=== PATIENT | male | born 1950 ===

== ENCOUNTER 2020-06-25 21:08 | Emergency (ER) | payer BC, SELFPAY ==
[2020-06-25 22:00] LABS: HEMATOCRIT 37.2 % (42.0-52.0); HEMOGLOBIN 12.3 g/dl (13.5-17.5); MEAN CORPUSCULAR HEMOGLOBIN 30.9 pg (27.0-33.0); MEAN CORPUSCULAR HGB CONC 33.1 g/dl (32.0-36.5); MEAN CORPUSCULAR VOLUME 93.5 fl (80.0-96.0); PLATELET COUNT, AUTOMATED 186 10^3/uL (150-450); RED BLOOD COUNT 3.98 10^6/uL (4.30-6.10); WHITE BLOOD COUNT 8.2 10^3/uL (4.0-10.0)
[2020-06-25 22:11] LABS: INR 1.04; PROTHROMBIN TIME 13.8 SECONDS (12.5-14.3)
[2020-06-25 22:27] LABS: BLOOD UREA NITROGEN 19 MG/DL (7-18); CALCIUM LEVEL 9.1 MG/DL (8.8-10.2); CARBON DIOXIDE LEVEL 25 MEQ/L (21-32); CHLORIDE LEVEL 104 MEQ/L (98-107); CREATININE FOR GFR 1.22 MG/DL (0.70-1.30); ETHYL ALCOHOL (ETHANOL) 0.239 % (0.000-0.010); GLOMERULAR FILTRATION RATE > 60.0 (>42); GLUCOSE, FASTING 113 MG/DL (70-100); POTASSIUM SERUM 3.8 MEQ/L (3.5-5.1); SODIUM LEVEL 137 MEQ/L (136-145)
--- NOTE | 2020-06-25 22:47 | REPVR ---
PROCEDURE INFORMATION: Exam: CT Head Without Contrast Exam date and time: 06/25/2020 10:25 PM Age: 69 years old Clinical indication: Injury or trauma; Fall; Blunt trauma (contusions or hematomas); Additional info: ? Loc TECHNIQUE: Imaging protocol: Computed tomography of the head without contrast. Radiation optimization: All CT scans at this facility use at least one of these dose optimization techniques: automated exposure control; mA and/or kV adjustment per patient size (includes targeted exams where dose is matched to clinical indication); or iterative reconstruction. COMPARISON: No relevant prior studies available. FINDINGS: Brain: There is no evidence of intracranial hemorrhage. No abnormal extra-axial fluid collections are identified. No mass effect or midline shift is seen. Blakely-white differentiation is preserved throughout. Cerebral ventricles: No ventriculomegaly. Bones/joints: No calvarial fracture is seen. Paranasal sinuses: There is minimal sinus mucosal disease, with no air-fluid level identified. Mastoid air cells: There is no mastoid effusion detected. Vasculature: Atherosclerotic vascular disease is noted at the level of the skull base. Soft tissues: Right parietal scalp injury. IMPRESSION: No acute intracranial pathology demonstrated by CT. Electronically signed by: Verona Rodriguez On 06/25/2020 22:47:31 PM
--- NOTE | 2020-06-25 23:00 | REPVR ---
PROCEDURE INFORMATION: Exam: CT Cervical Spine Without Contrast Exam date and time: 06/25/2020 10:25 PM Age: 69 years old Clinical indication: Injury or trauma; Fall; Blunt trauma; Additional info: ? Loc TECHNIQUE: Imaging protocol: Computed tomography images of the cervical spine without contrast. Radiation optimization: All CT scans at this facility use at least one of these dose optimization techniques: automated exposure control; mA and/or kV adjustment per patient size (includes targeted exams where dose is matched to clinical indication); or iterative reconstruction. COMPARISON: No relevant prior studies available. FINDINGS: Bones/joints: There has been previous anterior discectomy and fusion at C4-C5 and C5-C6, with no acute complication evident. No anterior wedging deformity. No acute lucent fracture lines visualized. Facet arthropathy is most severe on the left at C3-C4. Spondylitic changes are most severe at the C3-C4 and C6-C7 levels. Discs/Spinal canal/Neural foramina: No severe central canal stenosis demonstrated by CT. There is neural foraminal stenosis bilaterally at C3-C4 through C6-C7. Lungs: Lung apices are normal. IMPRESSION: 1. No acute cervical spinal injury demonstrated by CT. 2. Previous anterior discectomy and fusion at C4-C5 and C5-C6, with no acute complication evident. 3. Degenerative changes of the cervical spine. Electronically signed by: Verona Rodriguez On 06/25/2020 23:00:21 PM
[2020-06-25 23:08] VITALS: BP 135/80
== END 2020-06-25 22:50 | disposition home or self-care (01) ==
LOC: M ED 21:08
DX: S06.0X0A Concussion without loss of consciousness, initial encounter (principal); S00.03XA Contusion of scalp, initial encounter; F10.129 Alcohol abuse with intoxication, unspecified; W19.XXXA Unspecified fall, initial encounter; Y92.89 Other specified places as the place of occurrence of the external cause; Y93.9 Activity, unspecified; Y99.9 Unspecified external cause status; I51.9 Heart disease, unspecified; I10 Essential (primary) hypertension; M50.30 Other cervical disc degeneration, unspecified cervical region; M43.22 Fusion of spine, cervical region
CPT/HCPCS: 70450; 72125; 80048; 85027; 85610; 96374; 99284; G0480